=== PATIENT | male | born 1990 | race Two or more races ===

== ENCOUNTER 2017-04-15 09:20 | Emergency (ER) | payer MEDICAID ==
[2017-04-15 09:34] VITALS: O2SAT 96
[2017-04-15] MEDS ORDERED: TDAP ADULT 0.5 ML INJ (BOOSTRIX) IM ONE (09:41)
--- NOTE | 2017-04-15 10:20 | EDPHY ---
H & P Time Seen by Provider: 04/15/17 10:05 HPI/ROS: CHIEF COMPLAINT: Right 3rd finger injury HISTORY OF PRESENT ILLNESS: 26-year-old male presents to the emergency department by private vehicle with injury to his right 3rd finger. Patient was at home just prior to arrival and crushed his finger between is of piece of metal on a piece of wood. He is right-hand dominant. He is having pain with range of motion and having difficulty flexing his fingers. He is unsure of his last tetanus shot. ROS: Denies numbness or tingling in his fingers, injury to the other fingers. Denies retained foreign body. Past Medical/Surgical History: Attention deficit hyperactivity disorder Social History: Single Smoking Status: Heavy smoker Physical Exam: On examination the patient has a small puncture wound noted to the dorsal aspect of his right 3rd finger overlying PIP joint. His PIP joint is very tender and swollen. He has limited flexion and unable to fully extend his finger secondary to pain. Normal sensation to light touch with normal 2 point discrimination. The other fingers do not appear injured. No rotational deformities noted. Strong radial pulse at the left wrist. Constitutional: Initial Vital Signs Temperature (C) 36.6 C 04/15/17 09:28 Heart Rate 68 04/15/17 09:28 Respiratory Rate 16 04/15/17 09:28 Blood Pressure 104/81 H 04/15/17 09:28 O2 Sat (%) 96 04/15/17 09:28 O2 Delivery Mode Room Air Allergies/Adverse Reactions: divalproex sodium [From Depakote] Allergy (Verified 04/15/17 09:31) Home Medications: Medication Instructions Recorded NK [No Known Home Meds] 04/15/17 MDM/Departure - MDM Imaging Results: Imaging Impressions Finger X-Ray 04/15/17 10:17 Impression: Soft tissue calcification dorsal to the proximal aspect of the middle phalanx. Otherwise negative right third finger radiographs. Medications Given: Discontinued Medications Diphtheria/Tetanus/Acell Pertussis (Boostrix) 0.5 ml IM .ONCE ONE Stop: 04/15/17 09:42 Last Admin: 04/15/17 09:45 Dose: 0.5 ml ED Course/Re-evaluation: Patient's tetanus shot was updated. X-rays of the right 3rd finger are pending. X-rays reveal no fractures although patient does have possible radiopaque retained foreign body at the PIP joint. The wound was left open. No suturable lacerations noted. He was given orthopedic hand surgical referral. He understands the risks of infection. - Depart Disposition: Home, Routine, Self-Care Clinical Impression: Contusion right 3rd finger Condition: Good Instructions: Contusion in Adults (ED) Additional Instructions: Splint for comfort and support. Ice, cool compresses to help relieve swelling. Ibuprofen 400-600 mg every 8 hours as needed for pain. You could have a small piece of metal or other radiopaque foreign body in your finger that was unable to be irrigated. Your wound is not sutured. You should follow up with orthopedic hand surgeon tomorrow or Wednesday to recheck. Referrals: Leo Power MD [Medical Doctor] - 1-2 days without fail (Orthopedic hand surgeon on-call)
[2017-04-15 11:29] VITALS: BP 111/68; PULSE 81; RESP 18; TEMP 98.6
== END 2017-04-15 11:35 | disposition home or self-care (01) ==
DX: S60.031A Contusion of right middle finger without damage to nail, initial encounter (principal); W23.1XXA Caught, crushed, jammed, or pinched between stationary objects, initial encounter; Z23 Encounter for immunization; F17.200 Nicotine dependence, unspecified, uncomplicated